=== PATIENT | male | born 1955 | race Caucasian/White ===

== ENCOUNTER 2016-10-29 16:17 | Outpatient (CLI) | payer BC ==
[2016-10-29 17:30] LABS: Calcium 10.4 mg/dL (7.8-10.44); Cardiac Risk 3.6 (Less than 4.5)
== END 2016-10-29 16:18 | disposition home or self-care (01) ==
LOC: NAVSJIPCSP 16:17
PROVIDERS: ATTEND Internal Medicine
DX: E78.5 Hyperlipidemia, unspecified (principal); E83.52 Hypercalcemia
CPT/HCPCS: 80061; 82310; 83970

== ENCOUNTER 2022-06-23 13:35 | Emergency (ER) | payer BC | END 2022-06-23 14:20 | disposition home or self-care (01) | LOC: NAV ERS 13:35 | DX: L02.512 Cutaneous abscess of left hand (principal); I10 Essential (primary) hypertension; E78.00 Pure hypercholesterolemia, unspecified; Z79.899 Other long term (current) drug therapy | CPT/HCPCS: 87070; 87205; 99283 ==